=== PATIENT | female | born 1950 | race American Indian/Alaskan Native ===

== ENCOUNTER 2017-01-04 07:37 | Day surgery (SDC) | payer OTHER, MEDICARE ==
[2017-01-04] MEDS ORDERED: NACL 0.9% 500 ML 500 ML IV SCH (08:00)
[2017-01-04 08:59] LABS: Basophils % (Auto) 0.5 % (0.0-1.8); Eosinophils % (Auto) 3.1 % (0.0-4.3); Hematocrit 37.8 % (30.3-42.9); Hemoglobin 12.3 gm/dl (10.1-14.3); Mean Corpuscular HGB Conc 33 % (30-34); Mean Corpuscular Hemoglobin 28 pg (28-32); Mean Corpuscular Volume 86 fl (79-97); Platelet Count 265 K/mm3 (140-440); Red Blood Count 4.42 M/mm3 (3.65-5.03); White Blood Count 7.5 K/mm3 (4.5-11.0)
[2017-01-04] MEDS ORDERED: ECOTRIN PO ONE (09:00)
[2017-01-04 09:10] LABS: INR 1.14 (0.87-1.13)
[2017-01-04] MEDS ORDERED: HEPARIN/NS 5000 UNIT/500ML(CATH LAB) 1,000 ML IR ONE (09:51)
[2017-01-04] MEDS ORDERED: HEPARIN 10,000 UNITS/10 ML ONE (09:51)
[2017-01-04] MEDS ORDERED: CALAN ONE (09:51)
[2017-01-04] MEDS ORDERED: NITROGLYCERIN SYRINGE 3 ML ONE (09:52)
[2017-01-04] MEDS: XYLOCAINE 2% INFILTRATI ONE ×3 (10:08→10:14)
[2017-01-04] MEDS: SUBLIMAZE ONE ×3 (10:08→10:39)
[2017-01-04] MEDS: VERSED ONE ×2 (10:08→10:12)
[2017-01-04 10:22] LABS: Anion Gap 18 mmol/L; BUN/Creatinine Ratio 34; Blood Urea Nitrogen 17 mg/dL (7-17); Carbon Dioxide 24 mmol/L (22-30); Chloride 103.9 mmol/L (98-107); Glucose 134 mg/dL (65-100); Potassium 4.1 mmol/L (3.6-5.0); Sodium 142 mmol/L (137-145)
[2017-01-04] MEDS ORDERED: XYLOCAINE 2% INFILTRATI ONE (10:28)
[2017-01-04] MEDS ORDERED: ANGIOMAX IV ONE (10:37)
[2017-01-04] MEDS ORDERED: NACL 0.9% 0 ML ONE (10:37)
[2017-01-04] MEDS ORDERED: APRESOLINE ONE (10:49)
--- NOTE | 2017-01-04 11:45 | Cardiac Catherization Report ---
REFERRING PHYSICIAN: Dr. Lao. INDICATION FOR PROCEDURE: The patient is a pleasant 66-year-old -[place] female with history of multiple risk factors including hypertension, COPD, pulmonary fibrosis, nonobstructive coronary artery disease, presents here with persistent chest pain, somewhat atypical. She has been having chest pain. She is referred for left heart catheterization. Risks, benefits, and potential alternatives explained at length prior to obtaining informed consent. PROCEDURE IN DETAIL: The patient was brought to the lab engineer in a postabsorptive state, prepped and draped in sterile fashion. Ernie's test in right hand was normal. A 2 mL of 2% lidocaine used to anesthetize the right wrist. We were unable to obtain a wrist access and thus we used a groin approach, 8 mL of 2% lidocaine used to anesthetize the right groin. A standard 5 Setswana sheath used to cannulate the right common femoral artery via modified Seldinger technique. All exchanges performed to exchange a J-tip guidewire. JL3.5 catheter used to engage left main. No dampening or ventricularization. Cineangiography performed in all projections. JR4 catheter used to cross valve under fluoroscopic guidance. Left ventriculography performed in 30 [place] and 30 TURK[place] projections via hand injections, catheter flushed. Manual pullback performed with continuous pressure monitoring. Catheter used to engage right coronary. No dampening or ventricularization. Cineangiography performed in multiple projections. CORONARY ANATOMY: This is a left dominant system. Right coronary is small, nondominant. No significant disease. Left main without significant disease, bifurcates left anterior descending and left circumflex. Left circumflex is a moderate sized vessel, courses AV groove. There is a 30% to 40% stenosis in the mid left circumflex ANKIT 3 flow, no obstructive disease identified. The LAD is a normal vessel without significant disease compared to the study from 2015. There is no interval change, no lesion in the mid left circumflex. Left ventriculography revealed normal systolic performance with estimated ejection fraction of 55% to 60%. No evidence of aortic stenosis. DATA: Aortic pressure is 180/90, LV pressure is 180, LVP of 22 mmHg. CONCLUSIONS: 1. Mild nonobstructive coronary artery disease with the maximal narrowing of approximately 30% in the mid left circumflex, not significantly changed from study in 2015. No other significant coronary artery disease identified. 2. Normal left ventricular systolic performance, estimated ejection fraction of 55% to 60%. 3. No evidence of aortic stenosis. At this point, recommend aggressive risk factor modification, blood pressure control. Follow up with Dr. Lao in the office. Standard Groin care. JOB# [id number] SBM/NTS
--- NOTE | 2017-01-04 15:04 | Short Stay Summary ---
Short Stay Documentation Date of service: 01/04/17 - History H&P: obtained from office - Allergies and Medications Current Medications: Allergies No Known Allergies Allergy (Verified 06/15/14 06:41) Home Medications Medication Instructions Recorded Confirmed Last Taken Type Potassium Chloride [K-Dur] 20 meq PO QDAY 06/15/14 01/04/17 01/03/17 History Albuterol Sulfate [Ventolin HFA] 1 puff IH PRN PRN #1 hfa.aer.ad 12/08/14 2 Weeks Ago Rx Furosemide [Lasix TAB] 40 mg PO QDAY tablet 12/08/14 01/04/17 01/03/17 Rx Metolazone [Zaroxolyn] 5 mg PO QDAY tablet 12/08/14 01/04/17 01/03/17 Rx Digoxin [Digox] 125 mcg PO DAILY 06/30/15 01/04/17 01/03/17 History Diltiazem [Cardizem] 120 mg PO DAILY 06/30/15 01/04/17 01/03/17 History ISOSORBIDE MONOnitrate [Imdur ER] 60 mg PO DAILY 06/30/15 01/04/17 01/03/17 History Tiotropium [Spiriva] 1 dose INHALATION PRN PRN 06/30/15 01/04/17 01/02/17 History Nitroglycerin [Nitrostat] 0.4 mg SL Q5M PRN 01/04/17 01/04/17 Unknown History Active Medications Sodium Chloride (Nacl 0.9% 500 Ml) 500 mls @ 50 mls/hr IV DIRECT FERNANDEZ Stop: 01/04/17 17:59 - Brief post op/procedure progress note Date of procedure: 01/04/17 Pre-op diagnosis: chest pain; abnormal stress test Post-op diagnosis: same Anesthesia: local Estimated blood loss: none Condition: stable - Disposition Condition at discharge: Stable Disposition: DC-01 TO HOME OR SELFCARE - Discharge Diagnoses (1) Abnormal stress test Status: Acute (2) Atypical chest pain Status: Acute Comment: Resolved and most likely from her anterior chest wall as well as pulmonary fibrosis (3) CAD (coronary artery disease) Status: Chronic Qualifiers: Coronary Disease-Associated Artery/Lesion type: C [place] vs. transplanted heart: N Associated angina: A (4) COPD (chronic obstructive pulmonary disease) Status: Chronic Qualifiers: COPD type: C Chronic bronchitis type: C Emphysema type: E (5) HTN (hypertension) Status: Chronic Qualifiers: Hypertension type: H Short Stay Discharge Plan Activity: advance as tolerated Diet: low fat, low cholesterol, low salt Wound: open to air, keep clean and dry, per your surgeon's advice Follow up with: RAMONA KELLER MD [Primary Care Provider] - 7 Days Forms: CardCath PCI D/C Instructions
[2017-01-04 15:06] VITALS: BP 155/67
== END 2017-01-04 15:10 | disposition home or self-care (01) ==
LOC: CATHLABREC 07:37
PROVIDERS: ATTEND Internal Medicine
DX: I25.10 Atherosclerotic heart disease of native coronary artery without angina pectoris (principal); J84.10 Pulmonary fibrosis, unspecified; I10 Essential (primary) hypertension; J96.10 Chronic respiratory failure, unspecified whether with hypoxia or hypercapnia; E66.01 Morbid (severe) obesity due to excess calories; J44.9 Chronic obstructive pulmonary disease, unspecified; Z68.41 Body mass index [BMI] 40.0-44.9, adult; Z79.899 Other long term (current) drug therapy
CPT/HCPCS: 36415; 80048; 85025; 85610; 85730; 93005; 93010; 93458; 99152; 99153; C1894; J0360; J1644; J2250; J3010; J7040; J0583; Q9967

== ENCOUNTER 2018-06-23 11:18 | Emergency (ER) | payer OTHER, MEDICARE ==
--- NOTE | 2018-06-23 11:40 | Emergency Department Report ---
Chief Complaint: Chest Pain Stated Complaint: SENT BY DOCTOR/CHEST PAIN Time Seen by Provider: 06/23/18 11:35 - HPI History of Present Illness: pt presents for substernal CP and epigastric abd pain that began two weeks ago worse with laying down has been taking GERD medications without much relief has increased belching, gas went to PCP today and was sent to the ED for further eval hx of cholecystectomy hx of pulmonary fibrosis, COPD on 2-3 L former smoker quit 2001 hx CAD MSE screening note: Focused history and physical exam performed. Due to findings the following was ordered: labs, EKG, CXR
[2018-06-23 12:07] LABS: Basophils % (Auto) 0.6 % (0.0-1.8); Eosinophils # (Auto) 0.3 K/mm3 (0.0-0.4); Eosinophils % (Auto) 3.3 % (0.0-4.3); Hemoglobin 12.6 gm/dl (10.1-14.3); Lymphocytes # (Auto) 3.3 K/mm3 (1.2-5.4); Lymphocytes % (Auto) 40.5 % (13.4-35.0); Mean Corpuscular HGB Conc 33 % (30-34); Mean Corpuscular Volume 84 fl (79-97); Monocytes # (Auto) 0.4 K/mm3 (0.0-0.8); Monocytes % (Auto) 4.8 % (0.0-7.3); Platelet Count 294 K/mm3 (140-440); Red Blood Count 4.51 M/mm3 (3.65-5.03); Red Cell Distribution Width 15.2 % (13.2-15.2)
[2018-06-23 12:17] LABS: INR 1.18 (0.87-1.13)
[2018-06-23 12:18] LABS: Partial Thromboplastin Time 30.5 Sec. (24.2-36.6)
[2018-06-23 12:35] LABS: Alanine Aminotransferase 18 units/L (7-56); BUN/Creatinine Ratio 23; Blood Urea Nitrogen 18 mg/dL (7-17); Calcium 9.3 mg/dL (8.4-10.2); Hemolysis Index 5
--- NOTE | 2018-06-23 12:49 | XRay Report ---
ROUTINE CHEST, TWO VIEWS: HISTORY: chest pain. There is poor inspiratory effort. The trachea, heart, mediastinal contour, lung no and bony thorax are unremarkable. IMPRESSION: Unremarkable chest x-ray.
[2018-06-23] MEDS ORDERED: ZOFRAN IV ONE (14:13)
[2018-06-23] MEDS ORDERED: MORPHINE IV ONE (14:13)
--- NOTE | 2018-06-23 14:26 | Emergency Department Report ---
ED General Adult HPI - General Chief complaint: Chest Pain Stated complaint: SENT BY DOCTOR/CHEST PAIN Time Seen by Provider: 06/23/18 11:35 Source: patient Mode of arrival: Ambulatory Limitations: No Limitations - History of Present Illness Initial comments: Patient presents to the emergency department with a chief complaint of epigastric abdominal pain 2 weeks as radiating into her lower abdomen and back. Patient went to her primary care physician's office today and was sent to the emergency department for evaluation. 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 -: Gradual Location: abdomen Radiation: back, distal Severity scale (0 -10): 7 Quality: aching Consistency: constant Improves with: none Worsens with: none Associated Symptoms: denies other symptoms Treatments Prior to Arrival: none - Related Data Home Medications Medication Instructions Recorded Confirmed Last Taken Potassium Chloride [K-Dur] 20 meq PO QDAY 06/15/14 01/04/17 01/03/17 Digoxin [Digox] 125 mcg PO DAILY 06/30/15 01/04/17 01/03/17 ISOSORBIDE MONOnitrate [Imdur ER] 60 mg PO DAILY 06/30/15 01/04/17 01/03/17 Tiotropium [Spiriva] 1 dose INHALATION PRN PRN 06/30/15 01/04/17 01/02/17 dilTIAZem [Cardizem] 120 mg PO DAILY 06/30/15 01/04/17 01/03/17 Nitroglycerin [Nitrostat] 0.4 mg SL Q5M PRN 01/04/17 01/04/17 Unknown Previous Rx's Medication Instructions Recorded Last Taken Type Albuterol Sulfate [Ventolin HFA] 1 puff IH PRN PRN #1 hfa.aer.ad 12/08/14 2 Weeks Ago Rx ~12/21/16 Furosemide [Lasix TAB] 40 mg PO QDAY tablet 12/08/14 01/03/17 Rx metOLazone [Zaroxolyn] 5 mg PO QDAY tablet 12/08/14 01/03/17 Rx Dicyclomine [Bentyl] 20 mg PO TID PRN #30 bottle 06/23/18 Unknown Rx Sucralfate [Carafate] 1 gm PO Q6HR #180 udc 04/29/19 Unknown Rx Allergies Allergy/AdvReac Type Severity Reaction Status Date / Time No Known Allergies Allergy Verified 06/23/18 11:20 ED Review of Systems ROS: Stated complaint: SENT BY DOCTOR/CHEST PAIN Other details as noted in HPI Comment: All other systems reviewed and negative Constitutional: denies: chills, fever Eyes: denies: eye pain, eye discharge, vision change ENT: denies: ear pain, throat pain Respiratory: denies: cough, shortness of breath, wheezing Cardiovascular: denies: chest pain, palpitations Endocrine: no symptoms reported Gastrointestinal: abdominal pain. denies: nausea, diarrhea Genitourinary: denies: urgency, dysuria, discharge Musculoskeletal: denies: back pain, joint swelling, arthralgia Skin: denies: rash, lesions Neurological: denies: headache, weakness, paresthesias Psychiatric: denies: anxiety, depression Hematological/Lymphatic: denies: easy bleeding, easy bruising ED Past Medical Hx - Past Medical History Hx Hypertension: Yes (2008) Hx Heart Attack/AMI: No Hx Congestive Heart Failure: Yes (2006) Hx Deep Vein Thrombosis: No Hx GERD: Yes Hx Sickle Cell Disease: No Hx Arthritis: Yes Hx COPD: Yes (home O2) Additional medical history: pulmonary fibrosis - Surgical History Hx Coronary Stent: No Hx Pacemaker: No Hx Internal Defibrillator: No Hx Cholecystectomy: Yes (2011) - Social History Smoking Status: Former Smoker Substance Use Type: None - Medications Home Medications: Home Medications Medication Instructions Recorded Confirmed Last Taken Type Potassium Chloride [K-Dur] 20 meq PO QDAY 06/15/14 01/04/17 01/03/17 History Albuterol Sulfate [Ventolin HFA] 1 puff IH PRN PRN #1 hfa.aer.ad 12/08/14 01/04/17 2 Weeks Ago Rx ~12/21/16 Furosemide [Lasix TAB] 40 mg PO QDAY tablet 12/08/14 01/04/17 01/03/17 Rx metOLazone [Zaroxolyn] 5 mg PO QDAY tablet 12/08/14 01/04/17 01/03/17 Rx Digoxin [Digox] 125 mcg PO DAILY 06/30/15 01/04/17 01/03/17 History ISOSORBIDE MONOnitrate [Imdur ER] 60 mg PO DAILY 06/30/15 01/04/17 01/03/17 History Tiotropium [Spiriva] 1 dose INHALATION PRN PRN 06/30/15 01/04/17 01/02/17 History dilTIAZem [Cardizem] 120 mg PO DAILY 06/30/15 01/04/17 01/03/17 History Nitroglycerin [Nitrostat] 0.4 mg SL Q5M PRN 01/04/17 01/04/17 Unknown History Dicyclomine [Bentyl] 20 mg PO TID PRN #30 bottle 06/23/18 Unknown Rx Sucralfate [Carafate] 1 gm PO Q6HR #180 udc 06/23/18 Unknown Rx ED Physical Exam - General Limitations: No Limitations General appearance: alert, in no apparent distress - Head Head exam: Present: atraumatic, normocephalic - Eye Eye exam: Present: normal appearance, PERRL, EOMI - ENT ENT exam: Present: mucous membranes moist - Neck Neck exam: Present: normal inspection - Respiratory Respiratory exam: Present: normal lung sounds bilaterally. Absent: respiratory distress, wheezes, rales - Cardiovascular Cardiovascular Exam: Present: regular rate, normal rhythm. Absent: systolic murmur, diastolic murmur, rubs, gallop - GI/Abdominal GI/Abdominal exam: Present: soft, tenderness (diffusely tender to palpation), normal bowel sounds. Absent: distended - Extremities Exam Extremities exam: Present: normal inspection - Back Exam Back exam: Present: normal inspection - Neurological Exam Neurological exam: Present: alert, oriented X3, CN II-XII intact. Absent: motor sensory deficit - Psychiatric Psychiatric exam: Present: normal affect, normal mood - Skin Skin exam: Present: warm, dry, intact, normal color. Absent: rash ED Course Vital Signs 06/23/18 06/23/18 06/23/18 11:36 13:32 18:13 Temperature 97.8 F Pulse Rate 88 68 85 Respiratory 22 16 16 Rate Blood Pressure 136/60 Blood Pressure 139/61 158/107 [Left] O2 Sat by Pulse 96 97 99 Oximetry ED Medical Decision Making - Lab Data Result diagrams: 06/23/18 11:52 06/23/18 11:52 Lab Results 06/23/18 06/23/18 06/23/18 Range/Units 11:52 11:52 11:52 WBC 8.1 (4.5-11.0) K/mm3 RBC 4.51 (3.65-5.03) M/mm3 Hgb 12.6 (10.1-14.3) gm/dl Hct 38.0 (30.3-42.9) % MCV 84 (79-97) fl MCH 28 (28-32) pg MCHC 33 (30-34) % RDW 15.2 (13.2-15.2) % Plt Count 294 (140-440) K/mm3 Lymph % (Auto) 40.5 H (13.4-35.0) % [place] % (Auto) 4.8 (0.0-7.3) % Eos % (Auto) 3.3 (0.0-4.3) % Baso % (Auto) 0.6 (0.0-1.8) % Lymph # 3.3 (1.2-5.4) K/mm3 [place] # 0.4 (0.0-0.8) K/mm3 Eos # 0.3 (0.0-0.4) K/mm3 Baso # 0.0 (0.0-0.1) K/mm3 Seg Neutrophils % 50.8 (40.0-70.0) % Seg Neutrophils # 4.1 (1.8-7.7) K/mm3 PT 15.8 H (12.2-14.9) Sec. INR 1.18 H (0.87-1.13) APTT 30.5 (24.2-36.6) Sec. Sodium 138 (137-145) mmol/L Potassium 4.0 (3.6-5.0) mmol/L Chloride 102.8 (98-107) mmol/L Carbon Dioxide 22 (22-30) mmol/L Anion Gap 17 mmol/L BUN 18 H (7-17) mg/dL Creatinine 0.8 (0.7-1.2) mg/dL Estimated GFR > 60 ml/min BUN/Creatinine Ratio 23 % Glucose 133 H (65-100) mg/dL Calcium 9.3 (8.4-10.2) mg/dL Total Bilirubin 0.40 (0.1-1.2) mg/dL AST 15 (5-40) units/L ALT 18 (7-56) units/L Alkaline Phosphatase 119 (35-129) units/L Troponin T < 0.010 (0.00-0.029) ng/mL NT-Pro-B Natriuret Pep 79.26 (0-900) pg/mL Total Protein 7.9 (6.3-8.2) g/dL Albumin 4.0 (3.9-5) g/dL Albumin/Globulin Ratio 1.0 % Lipase 44 (13-60) units/L - EKG Data -: EKG Interpreted by Me EKG shows normal: sinus rhythm Rate: normal - Radiology Data Radiology results: report reviewed - Medical Decision Making Results discussed with the patient Critical care attestation.: If time is entered above; I have spent that time in minutes in the direct care of this critically ill patient, excluding procedure time. ED Disposition Clinical Impression: Abdominal pain Disposition: TO HOME OR SELFCARE Is pt being admited?: No Does the pt Need Aspirin: No Condition: Stable Instructions: Abdominal Pain (ED) Additional Instructions: return if worse Prescriptions: Dicyclomine [Bentyl] 20 mg PO TID PRN #30 bottle PRN Reason: pain Sucralfate [Carafate] 1 gm PO Q6HR #180 [facility] [place] Referrals: RAMONA KELLER MD [Primary Care Provider] - 3-5 Days Time of Disposition: 19:20
--- NOTE | 2018-06-23 18:42 | Cat Scan Report ---
PROCEDURE: CT ABDOMEN PELVIS WO CON TECHNIQUE: Computerized axial tomography of the abdomen and pelvis was performed without intravenous contrast. This study is performed without intravascular contrast material and its sensitivity for ab dominal and pelvic pathology, including neoplasms, inflammation, abscess, free fluid, thrombosis, art erial dissection and infarction, is reduced compared with a contrast enhanced study. CT DOSE LENGTH PRODUCT: 1954.9 mGycm HISTORY: Abdominal pain COMPARISONS: None . FINDINGS: Visualized lower thorax: Calcified hilar lymph nodes are present. Nonspecific groundglass opacities a re seen in the lung bases. Liver: Numerous calcified granulomas are present. Liver measures 22 cm craniocaudal. Spleen: Numerous calcified granulomas are present. Gallbladder and biliary system: There has been cholecystectomy. Pancreas: Normal. Adrenals: 13 mm right adrenal nodule, which is indeterminate in etiology based on density. Kidneys: Normal. GI tract: Appendix is not identified. No bowel obstruction or inflammation . Lymph nodes and mesentery: Haziness of the mesentery at the mesenteric root, with scattered small mes enteric lymph nodes present. This is of indeterminate significance. Vasculature: Aortic and bilateral common iliac artery dense atherosclerotic calcification. Bladder: Normal. Reproductive organs: Uterus is absent. Peritoneum: No free fluid. Musculoskeletal structures: Facet arthritic changes of the lower lumbar spine. Other: None. IMPRESSION: Evidence of granulomatous disease. Indeterminate 13 mm right adrenal nodule. No acute inflammatory process is seen. No hydronephrosis or urolithiasis . This document is electronically signed by Celia Keller MD., June 23 2018 06:41:14 PM ET
[2018-06-23 19:36] VITALS: BP 155/60
== END 2018-06-23 19:48 | disposition home or self-care (01) ==
LOC: ED 11:18
DX: R10.13 Epigastric pain (principal); I11.0 Hypertensive heart disease with heart failure; I50.9 Heart failure, unspecified; K21.9 Gastro-esophageal reflux disease without esophagitis; J44.9 Chronic obstructive pulmonary disease, unspecified; M19.90 Unspecified osteoarthritis, unspecified site; Z90.49 Acquired absence of other specified parts of digestive tract; Z87.891 Personal history of nicotine dependence
CPT/HCPCS: 36415; 71046; 74176; 80053; 83690; 83880; 84484; 85025; 85610; 85730; 93005; 93010; 96374; 96375; 99285; J2270; J2405

== ENCOUNTER 2021-06-15 06:32 | Observation (INO) | payer MEDICARE, OTHER ==
[2021-06-15 07:19] LABS: Basophils % (Auto) 0.5 % (0.0-1.8); Eosinophils # (Auto) 0.2 K/mm3 (0.0-0.4); Hematocrit 43.7 % (30.3-42.9); Hemoglobin 13.8 gm/dl (10.1-14.3); Lymphocytes # (Auto) 2.8 K/mm3 (1.2-5.4); Mean Corpuscular HGB Conc 32 % (30-34); Mean Corpuscular Volume 85 fl (79-97); Monocytes # (Auto) 0.4 K/mm3 (0.0-0.8); Monocytes % (Auto) 4.8 % (0.0-7.3); Platelet Count 277 K/mm3 (140-440); Red Blood Count 5.15 M/mm3 (3.65-5.03); Red Cell Distribution Width 15.4 % (13.2-15.2)
[2021-06-15 07:29] LABS: INR 1.09 (0.87-1.13)
[2021-06-15 07:30] LABS: Partial Thromboplastin Time 32.9 Sec. (24.2-36.6)
[2021-06-15] MEDS ORDERED: ASPIRIN EC 325 MG TAB PO SCH (07:30)
[2021-06-15 07:33] LABS: Blood Urea Nitrogen 19 mg/dL (7-17); Calcium 9.6 mg/dL (8.4-10.2); Hemolysis Index 60
[2021-06-15 07:39] LABS: BUN/Creatinine Ratio 27
[2021-06-15] MEDS ORDERED: VERAPAMIL 5 MG/2 ML INJ ONE (08:02)
[2021-06-15] MEDS ORDERED: HEPARIN 10,000 UNITS/10 ML VIAL ONE ×2 (08:02→09:29)
[2021-06-15] MEDS ORDERED: NITROGLYCERIN SYRINGE 3 ML ONE (08:02)
[2021-06-15] MEDS: SODIUM CHLORIDE 0.9% 500 ML 500 ML IV SCH ×2 (08:15→09:07)
[2021-06-15] MEDS: MIDAZOLAM 2 MG/2 ML INJ ONE ×2 (09:06→09:10)
[2021-06-15] MEDS: fentaNYL 100 MCG/2 ML INJ ONE ×2 (09:06→09:11)
[2021-06-15] MEDS: HEPARIN/NS 5000 UNIT/500ML 1,000 ML IR ONE ×2 (09:07→09:10)
[2021-06-15] MEDS: LIDOCAINE (1%) 10 MG/1 ML VIAL 20 ML MDV ONE ×2 (09:07→09:11)
[2021-06-15] MEDS ORDERED: ALUM-MAG HYDROXIDE-SIMETHICONE 200-200-20MG/5ML ORAL LIQD 30 ML ONE (09:45)
[2021-06-15] MEDS ORDERED: CLOPIDOGREL 300 MG TAB ONE (09:45)
[2021-06-15] MEDS ORDERED: HYDROcodone/ACETAMINOPHEN 5-325 MG TAB PO PRN ×2 (10:07→10:25)
[2021-06-15] MEDS ORDERED: ALBUTEROL 8.5 GM MDI INHALATION IH PRN (10:10)
[2021-06-15] MEDS ORDERED: NON-FORMULARY EACH (Budesonide/Formoterol Fumarate [Symbicort 160-4.5 Mcg Inhaler] 10.2 GM INHALATION SCH (10:15)
[2021-06-15] MEDS ORDERED: ALBUTEROL 2.5 MG/3 ML NEBU IH PRN (10:25)
[2021-06-15] MEDS ORDERED: ACETAMINOPHEN 325 MG TAB PO PRN (10:25)
[2021-06-15] MEDS ORDERED: HYDROmorphone 1 MG/1 ML INJ IV PRN (10:25)
--- NOTE | 2021-06-15 10:38 | Electrocardiograph Report ---
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
[2021-06-15] MEDS ORDERED: NON-FORMULARY EACH (Insulin Aspart (Nf) 100 UNIT/ML Insuln.Pen) SQ SCH (11:30)
[2021-06-15] MEDS ORDERED: dilTIAZem CD 120 MG CAP PO SCH (12:00)
--- NOTE | 2021-06-15 12:03 | Cardiac Catherization Report ---
DATE OF SERVICE: 06/15/2021 LEFT HEART CATHETERIZATION/ PERCUTANEOUS CORONARY INTERVENTION, INTRAVASCULAR ULTRASOUND REPORT CLINICAL INFORMATION: This is a 70-year-old female with morbid obesity, diabetes, hypertension, cholesterol, respiratory issues, presents with abnormal cardiac PET with moderate ischemia, is here for left heart cath. Left heart catheterization was done with moderate sedation, started 0910, finished 0942, 32 minutes of moderate sedation. DESCRIPTION OF PROCEDURE: Procedure was done via the right common femoral artery, sterile technique and local anesthesia 5-Nigerien groin sheath inserted as radial artery was not accessible. 1. Left system engaged JL4 catheter. Left main is medium to large caliber vessel, patent. LAD is a medium caliber vessel, patent. Mild luminal irregularities. Diagonal 1, diagonal 2 small caliber was patent. Circumflex codominant vessel. Proximal was patent. Ramus is a medium to large caliber patent, mid has a 90% lesion across the OM1, OM2 and LPDA are small caliber vessel is patent. RCA is a codominant vessel, was small caliber and small PDA. LV gram done in AYLIN and IRIVNG view shows normal LV function, LVEDP of 28 mmHg, LV is 170. Aortic is 162/79. No gradient across the aortic valve on pullback. A 5-Nigerien catheters all taken over a guidewire. Percutaneous coronary intervention of the mid circ, change the 5-Nigerien groin sheath to 6-Nigerien groin sheath, engaged the left system, an EBU 3.5 guiding catheter achieved adequate ACT and proceed with intervention, crossed into the distal circumflex with a short Roscoe wire and predilated with 2.5 x 12 balloon at 15 atmospheres x 2 inflations. 2. Intravascular ultrasound showed reference vessel 3.0 x 3.3 mm. 3. Stented the mid circumflex across the OM1 with a drug-eluting Resolute Ilia 3.0 x 15 mm at 18 atmospheres. 4. Midsection malposition, so used a noncompliant 3.25 x 8 inflated at 15 atmospheres x 2 inflations, excellent angiographic result, reduced stenosis from 90% down to 0 with good stent apposition and expansion noted. Increased flow with and size of the vessels with intracoronary nitro noted. Removed coronary wire. Excellent angiographic result. No dissection, perforation, or embolization noted. A 6-Nigerien guiding catheter taken over a guidewire. A 6-Nigerien groin sheath was sewn. No hematoma, no bleeding. SUMMARY: 1. Successful percutaneous coronary intervention of the mid circumflex across the OM1 with a drug-eluting Resolute 3.0 x 15. IVUS directed, postdilated with 3.25 x 8. 2. After intracoronary nitroglycerin, left main is large and patent. LAD is a large caliber, was patent. Mild luminal irregularities. Diagonal 1, diagonal 2 small to medium caliber, patent. Circumflex, large caliber vessel, was patent proximally and then mid stent patent. Ramus large caliber, was patent. OM1 patent, OM2 patent. LPDA patent. RCA is a small codominant vessel, patent with normal LV function with elevated left end-diastolic pressure. RECOMMENDATIONS: The patient will be loaded with Plavix 600 post-PCI care. Discussed this in detail with the patient and the patient's family. TID: [id number] RECEIPT: [id number] DANIELLA/LEONOR/OH
[2021-06-15] MEDS ORDERED: ATROPINE 0.1% (1 MG/10 ML) CARDIAC SYRINGE ONE (13:13)
[2021-06-15] MEDS ORDERED: RANOLAZINE ER 500 MG TAB 12HR PO SCH (14:00)
[2021-06-15] MEDS: INSULIN LISPRO 100 UNIT/ML SUB-Q SCH ×2 (15:54→16:50)
[2021-06-15] MEDS: MORPHINE 2 MG/1 ML INJ IV PRN ×2 (18:13→22:14)
[2021-06-15] MEDS: BUDESONIDE 0.5 MG/2 ML NEBU IH SCH (21:15)
[2021-06-15] MEDS: ARFORMOTEROL 15 MCG/2 ML NEBU IH SCH (21:16)
[2021-06-15] MEDS ORDERED: NON-FORMULARY EACH (Insulin Glargine,Hum.Rec.Anlog [Basaglar Kwikpen U-100] 100 UNIT/ML In SQ SCH (22:00)
[2021-06-15] MEDS ORDERED: POTASSIUM CHLORIDE ER 20 MEQ TAB PO SCH (22:00)
[2021-06-15] MEDS ORDERED: BUMETANIDE 2 MG PO SCH (22:00)
[2021-06-15] MEDS ORDERED: BUMETANIDE 1 MG TAB PO SCH (22:00)
[2021-06-15] MEDS ORDERED: INSULIN GLARGINE 100 UNITS/ML SUB-Q SCH (22:00)
[2021-06-16] MEDS: MORPHINE 2 MG/1 ML INJ IV PRN (05:39)
[2021-06-16] MEDS: BUDESONIDE 0.5 MG/2 ML NEBU IH SCH (08:19)
[2021-06-16] MEDS: ARFORMOTEROL 15 MCG/2 ML NEBU IH SCH (08:19)
[2021-06-16] MEDS: INSULIN LISPRO 100 UNIT/ML SUB-Q SCH ×2 (08:23→09:51)
[2021-06-16 08:54] VITALS: BP 132/62
--- NOTE | 2021-06-16 09:56 | Short Stay Summary ---
Short Stay Documentation Date of service: 06/16/21 - History H&P: obtained from office - Allergies and Medications Current Medications: Allergies No Known Allergies Allergy (Verified 06/23/18 11:20) Home Medications Medication Instructions Recorded Confirmed Last Taken Type Albuterol Sulfate [Ventolin HFA] 1 puff IH PRN PRN #1 hfa.aer.ad 12/08/14 06/15/21 06/13/21 Rx 2 puffs ISOSORBIDE MONOnitrate [Imdur ER] 60 mg PO DAILY 06/30/15 06/15/21 06/14/21 History 120 mg Tiotropium [Spiriva] 1 dose INHALATION PRN PRN 06/30/15 06/15/21 05/04/20 History 1 dose Nitroglycerin [Nitrostat] 0.4 mg SL Q5M PRN 01/04/17 01/04/17 05/04/21 History AtorvaSTATin [Lipitor] 40 mg PO DAILY 06/15/21 06/15/21 06/14/21 History 40 mg Budesonide/Formoterol Fumarate 2 puff INHALATION Q12H 06/15/21 06/15/21 Unknown History [Symbicort 160-4.5 Mcg Inhaler] Bumetanide 2 mg PO BID 06/15/21 06/15/21 06/14/21 History 2 mg Empagliflozin [Jardiance] 1 tab PO QAM 06/15/21 06/15/21 06/14/21 History 1 tab Insulin Aspart (Nf) [NovoLOG 10 units SQ AC 06/15/21 06/15/21 06/14/21 History Flexpen] 10 units Insulin Glargine,Hum.rec.anlog 20 units SQ HS 06/15/21 06/15/21 06/14/21 History [Basaglar Kwikpen U-100] 20 units Metformin HCl [metFORMIN ER 500 mg PO DAILY 06/15/21 06/15/21 06/14/21 History Osmotic] 500 mg Potassium Chloride [Klor-Con M20] 20 meq PO BID 06/15/21 06/15/21 06/14/21 History 20 meq predniSONE [Deltasone] 2 tab PO PRN PRN 06/15/21 06/15/21 06/08/21 History 20 mg Active Medications Acetaminophen (Acetaminophen 325 Mg Tab) 650 mg PO Q4H PRN PRN Reason: Pain MILD(1-3)/Fever >100.5/DOAN Hydrocodone Bitart/Acetaminophen (Hydrocodone/Acetaminophen 5-325 Mg Tab) 1 each PO Q6H PRN PRN Reason: Pain, Moderate (4-6) Albuterol (Albuterol 2.5 Mg/3 Ml Nebu) 2.5 mg IH Q4HRT PRN PRN Reason: Shortness Of Breath Arformoterol Tartrate (Arformoterol 15 Mcg/2 Ml Nebu) 15 mcg IH Q12HRT [facility] Last Admin: 06/16/21 08:19 Dose: 15 mcg Aspirin (Aspirin 81 Mg Tab Chew) 81 mg PO QDAY [facility] Last Admin: 06/16/21 09:47 Dose: 81 mg Atorvastatin Calcium (Atorvastatin 40 Mg Tab) 40 mg PO QHS [facility] Budesonide (Budesonide 0.5 Mg/2 Ml Nebu) 1 mg IH Q12HRT [facility] Last Admin: 06/16/21 08:19 Dose: 0.5 mg Bumetanide (Bumetanide 1 Mg Tab) 2 mg PO BID [facility] Last Admin: 06/16/21 09:47 Dose: 2 mg Clopidogrel Bisulfate (Clopidogrel 75 Mg Tab) 75 mg PO QDAY [facility] Last Admin: 06/16/21 09:48 Dose: 75 mg Diltiazem HCl (Diltiazem Cd 120 Mg Cap) 120 mg PO QDAY [facility] Last Admin: 06/16/21 09:48 Dose: 120 mg Hydromorphone HCl (Hydromorphone 1 Mg/1 Ml Inj) 0.25 mg IV Q5MIN PRN PRN Reason: Chest Pain Insulin Human Lispro (Insulin Lispro 100 Unit/Ml) 10 unit SUB-Q AC [facility] Last Admin: 06/16/21 09:51 Dose: 10 unit Isosorbide Mononitrate (Isosorbide Mononitrate Er 60 Mg Tab) 60 mg PO QDAY [facility] Last Admin: 06/16/21 09:48 Dose: 60 mg Morphine Sulfate (Morphine 2 Mg/1 Ml Inj) 2 mg IV Q5MIN PRN PRN Reason: Chest Pain unrelieved by NTG Last Admin: 06/16/21 05:39 Dose: 2 mg Ranolazine (Ranolazine Er 500 Mg Tab 12hr) 500 mg PO BID [facility] Last Admin: 06/16/21 09:48 Dose: 500 mg - Physical exam General appearance: no acute distress Lungs: Clear to auscultation Heart: Regular rate, Normal S1, Normal S2 Female Genitourinary: deferred - Brief post op/procedure progress note Date of procedure: 06/15/21 Pre-op diagnosis: Abnormal PET Post-op diagnosis: other (CAD) Anesthesia: local Estimated blood loss: minimal - Hospital course Hospital course: This is a 70-year-old female with morbid obesity, diabetes, hypertension, cholesterol, respiratory issues, presents with abnormalCardiac PET CT with moderate ischemia, is here for left heart cath. Left heart catheterization was done with moderate sedation, started at 0910, finished 0942, 32 minutes of moderate sedation. Summary of cardiac catheterization report: 1. Successful percutaneous coronary intervention of the mid circumflex across the OM1 with drug-eluting resolute 3.0 x 15. IVUS directed, postdilated with a 3.25 x 8. To after intracoronary nitroglycerin, left main is large and patent. LAD is a large caliber, was patent. Mild luminal irregularities. Diagonal 1, diagonal 2 small to medium caliber, patent. Circumflex large caliber vessel, was patent proximally and then mid stent placement. Ramus large caliber, was patent. OM1 patent, OM 2 patent. L PDA patent. RCA small codominant vessel, patent with normal LV function with elevated left end-diastolic pressure. Recommendations: Hold metformin x48 hours and continue DAPT. Continue home medications. 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 Procedure completed on 06/15/2021. - Disposition Condition at discharge: Stable Disposition: 01 HOME / SELF CARE / HOMELESS - Discharge Diagnoses (1) Diabetes 1.5, managed as type 1 Status: Chronic (2) Acute diastolic (congestive) heart failure Status: Acute (3) Abnormal stress test Status: Acute (4) Pulmonary fibrosis Status: Chronic Comment: Stable or bronchodilators and oxygen (5) CAD (coronary artery disease) Status: Acute Qualifiers: [place] vs. transplanted heart: lime heart Associated angina: with stable angina (6) COPD (chronic obstructive pulmonary disease) Status: Chronic Qualifiers: Chronic bronchitis type: unspecified (7) HTN (hypertension) Status: Chronic Qualifiers: Hypertension type: primary hypertension Qualified Code(s): I10 - Essential (primary) hypertension Short Stay Discharge Plan Activity: advance as tolerated Diet: low fat, low cholesterol, low salt, diabetic Special Instructions: hold Metformin (x 48 hours ) Follow up with: RAMONA KELLER MD [Primary Care Provider] - 7 Days RANJIT KHALIL MD [Staff Physician] - 07/11/21 10:45 am Prescriptions: Clopidogrel [Plavix] 75 mg PO QDAY #90 tablet
[2021-06-16] MEDS ORDERED: dilTIAZem CD 120 MG CAP PO SCH (10:00)
[2021-06-16] MEDS ORDERED: NON-FORMULARY EACH (Empagliflozin [Jardiance] 25 MG Tablet) PO SCH (10:00)
[2021-06-16] MEDS ORDERED: BUMETANIDE 1 MG TAB PO SCH (10:00)
[2021-06-16] MEDS ORDERED: CLOPIDOGREL 75 MG TAB PO SCH ×2 (10:00)
[2021-06-16] MEDS ORDERED: RANOLAZINE ER 500 MG TAB 12HR PO SCH (10:00)
[2021-06-16] MEDS ORDERED: ASPIRIN 81 MG TAB CHEW PO SCH ×2 (10:00)
--- NOTE | 2021-06-16 10:14 | Electrocardiograph Report ---
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
--- NOTE | 2021-06-16 10:19 | Electrocardiograph Report ---
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
== END 2021-06-16 11:45 | disposition home or self-care (01) ==
LOC: CATHLABREC 06:32 → 4A 10:27
PROVIDERS: ADMIT Internal Medicine; ATTEND Internal Medicine
DX: I25.10 Atherosclerotic heart disease of native coronary artery without angina pectoris (principal); I11.0 Hypertensive heart disease with heart failure; I50.32 Chronic diastolic (congestive) heart failure; J96.12 Chronic respiratory failure with hypercapnia; E10.9 Type 1 diabetes mellitus without complications; R07.89 Other chest pain; R94.39 Abnormal result of other cardiovascular function study; D75.1 Secondary polycythemia; J84.112 Idiopathic pulmonary fibrosis; R60.0 Localized edema; E66.01 Morbid (severe) obesity due to excess calories; R00.2 Palpitations; Z87.09 Personal history of other diseases of the respiratory system; Z87.891 Personal history of nicotine dependence; Z79.4 Long term (current) use of insulin; Z79.84 Long term (current) use of oral hypoglycemic drugs; Z79.82 Long term (current) use of aspirin; Z68.41 Body mass index [BMI] 40.0-44.9, adult
CPT/HCPCS: 36415; 80048; 82962; 85025; 85610; 85730; 92978; 93005; 93458; 94640; 94760; 96374; 96376; C1725; C1753; C1769; C1874; C1887; C1894; C9600; G0378; J1644; J1815; J2250; J2270; J3010; J7040; 92928; Q9967; J0461